=== PATIENT | female | born 1965 | race Caucasian/White ===

== ENCOUNTER 2020-07-31 10:44 | Emergency (ER) | payer OTHER ==
--- NOTE | 2020-07-31 11:02 | TELE ---
HPI Do you have fever,cough or shortness of breath?: No - General Reason For Visit: COVID TESTING History Source: Patient Exam Limitations: No Limitations - History of Present Illness 07/31/20 10:59 54-year-old female evaluated via telemedicine, requesting Covid testing. patient is having an elective surgical procedure on August 05, 2020 and is required to have a negative Covid result 5 days prior to the procedure. She denies past medical history, denies any symptoms such as fever, cough, chills, chest pain, shortness of breath, abdominal pain or any other complaint. Denies known sick contacts or recent travel. ROS: as above PE: speaking full sentences - Medical Decision Making 07/31/20 11:01 Ordered Covid testing Patient having an elective procedure on August 05, 2020 and is required to have a negative Covid test. Tested negative for Covid 3 weeks ago. Discharge Diagnosis at time of Disposition: Suspected COVID-19 virus infection - Referrals Follow-up Referral(s): Sanket Mejia [Primary Care Provider] - - Patient Instructions - Discharge Condition at time of Disposition: Stable
== END 2020-07-31 11:03 | disposition home or self-care (01) ==
LOC: JVIRT 10:44
DX: Z03.818 Encounter for observation for suspected exposure to other biological agents ruled out (principal)
CPT/HCPCS: C9803; Q3014-GT; U0003